=== PATIENT | male | born 1965 | race Caucasian/White ===

== ENCOUNTER 2019-11-12 11:58 | Inpatient (IN) | payer SELFPAY ==
[~2019-11-12] VITALS: Ht 175.3 cm; Wt 103.7 kg
--- NOTE | 2019-11-12 12:19 | NUR ---
AMBULATORY TO & FROM [facility] W/OUT INCIDENT: GAIT STEADY. VOIDED SPECIMEN PROVIDED - CLEAR KO. REPORTS DARK URINE X 2 DAYS, FREQUENCY, VOIDING SMALL AMOUNTS, INTERMITTENT BURNING. REPORTS ENLARGED RIGHT TESTICLE: "THE RIGHT SIDE IS TOO BIG".
--- NOTE | 2019-11-12 12:48 | NUR ---
BILL STARK BS FOR EXAM
[2019-11-12 13:21] LABS: MEAN CORPUSCULAR HEMOGLOBIN 29.8 pg (27.5-34.5); MEAN CORPUSCULAR HGB CONC 32.1 g/dL (33.2-36.2); MEAN PLATELET VOLUME 9.4 fL (7.4-10.4); PLATELET COUNT 270 x10^3/uL (130-400); RED BLOOD COUNT 4.95 x10^6/uL (4.38-5.82); RED CELL DISTRIBUTION WIDTH 14.8 % (9.4-14.8)
[2019-11-12 13:25] LABS: MICROSCOPIC INDICATED
--- NOTE | 2019-11-12 13:30 | NUR ---
PT STRAIGHT CATH'D FOR URINE SPECIMEN (PT UNCIRCUMSIZED). PT TOLERATED PROCEDURE WELL. SPECIMEN TAKEN TO LAB.
[2019-11-12 13:33] LABS: ALANINE AMINOTRANSFERASE 31 U/L (12-78); ANION GAP 3 mmol/L (5-15); CALCIUM 8.7 mg/dL (8.5-10.1); CHLORIDE 106 mmol/L (98-107); CREATININE 0.88 mg/dL (0.7-1.3)
[2019-11-12 13:35] LABS: ALKALINE PHOSPHATASE 80 U/L (45-117); BILIRUBIN,TOTAL 0.7 mg/dL (0.2-1.0); TOTAL PROTEIN 7.3 g/dL (6.4-8.2)
[2019-11-12 13:45] LABS: MD YES
[2019-11-12 13:49] LABS: ANISOCYTOSIS 1+; LYMPHS% (MANUAL) 4 % (22-44); MONOS% (MANUAL) 4 % (2-9); SEGS% (MANUAL) 92 % (42-75)
[2019-11-12 13:50] LABS: POLYCHROMASIA 1+
[2019-11-12 13:51] LABS: PMNS WITH VACUOLES 1+
[2019-11-12 13:52] LABS: <PLATELET ESTIMATE> ADEQUATE; LARGE PLATELETS 1+
--- NOTE | 2019-11-12 13:54 | NUR ---
CALLED LAB RE: CATH'D URINE SPECIMEN. TECH HASN'T RECEIVED SPECIMEN. YET. INFORMED HER THAT THE SPECIMEN WAS WALKED THERE AT 1330.
[2019-11-12 14:08] LABS: MICROSCOPIC AUTO
--- NOTE | 2019-11-12 15:05 | NUR ---
SEPSIS WORKSHEET INITIATED.
[2019-11-12] MEDS ORDERED: LEVOFLOXACIN/PMX 750MG/150ML 150 ML ONE (15:29)
--- NOTE | 2019-11-12 15:36 | NUR ---
PT REPORT TO JENI POTTS FOR ROOM 369
[2019-11-12] MEDS: LEVOFLOXACIN/PMX 750MG/150ML 150 ML IV ONE ×2 (15:41→15:49)
--- NOTE | 2019-11-12 15:49 | NUR ---
BLD CX BAND ON WRIST. LEVAQUIN HUNG PER EMAR
[2019-11-12] MEDS ORDERED: MELATONIN 5 MG TABLET PO PRN (16:00)
[2019-11-12] MEDS ORDERED: BISACODYL 10 MG SUPP PR PRN (16:00)
[2019-11-12] MEDS ORDERED: OXYcodone IR 5MG TABLET PO PRN (16:00)
[2019-11-12] MEDS ORDERED: ACETAMINOPHEN 325 MG TABLET PO PRN (16:00)
[2019-11-12] MEDS ORDERED: DOCUSATE 100 MG CAPSULE PO PRN (16:00)
[2019-11-12] MEDS ORDERED: ONDANSETRON ODT 4 MG PO PRN (16:00)
[2019-11-12] MEDS ORDERED: LEVOFLOXACIN/PMX 750MG/150ML 150 ML IV SCH (16:00)
[2019-11-12] MEDS ORDERED: hydrALAzine 20 MG/ML, 1ML IVPush PRN (16:00)
[2019-11-12] MEDS ORDERED: POLYETHYLENE GLYCOL 17 GM PACKET PO PRN (16:00)
[2019-11-12] MEDS: IBUPROFEN 600 MG TABLET PO SCH ×2 (17:02→21:25)
[2019-11-12] MEDS: ENOXAPARIN 40 MG/0.4 ML SQ SCH (17:02)
[2019-11-12] MEDS: SODIUM CHLORIDE 0.9% 1,000 ML IV SCH (17:02)
[2019-11-12 17:12] VITALS: BP 173/87
[2019-11-12 17:36] LABS: MEAN CORPUSCULAR HEMOGLOBIN 30.1 pg (27.5-34.5); MEAN CORPUSCULAR HGB CONC 32.7 g/dL (33.2-36.2); MEAN PLATELET VOLUME 9.6 fL (7.4-10.4); PLATELET COUNT 250 x10^3/uL (130-400); RED BLOOD COUNT 4.92 x10^6/uL (4.38-5.82)
[2019-11-12 17:55] LABS: FREE T4 (FREE THYROXINE) 1.19 ng/dL (0.76-1.46)
[2019-11-12 18:08] LABS: MD YES
[2019-11-12 18:12] LABS: ANISOCYTOSIS 1+; EOS#(MANUAL) 0.25 x10^3/uL (0.0-0.4); EOS% (MANUAL) 1 % (1-7); LYMPHS% (MANUAL) 11 % (22-44); MONOS#(MANUAL) 0.74 x10^3/uL (0.3-2.7); MONOS% (MANUAL) 3 % (2-9); SEG#(MANUAL) 20.83 x10^3/uL (1.8-6.8); SEGS% (MANUAL) 85 % (42-75)
[2019-11-12 18:13] LABS: <PLATELET ESTIMATE> ADEQUATE; LARGE PLATELETS 1+; PMNS WITH VACUOLES 1+
[2019-11-12 18:48] LABS: HCT (SEDRATE) 45.3 % (39.2-51.8)
[2019-11-12 19:24] VITALS: BP 150/78
[2019-11-12] MEDS: FAMOTIDINE 20 MG TABLET PO SCH (21:25)
[2019-11-13 01:17] VITALS: BP 135/77
[2019-11-13] MEDS: SODIUM CHLORIDE 0.9% 1,000 ML IV SCH ×3 (01:59→21:59)
[2019-11-13 05:52] LABS: CHLORIDE 107 mmol/L (98-107)
[2019-11-13 06:01] LABS: ALANINE AMINOTRANSFERASE 31 U/L (12-78); ALBUMIN 2.6 g/dL (3.4-5.0); ALKALINE PHOSPHATASE 76 U/L (45-117); ANION GAP 5 mmol/L (5-15); BILIRUBIN,TOTAL 0.8 mg/dL (0.2-1.0); CALCIUM 8.6 mg/dL (8.5-10.1); CHOL/HDL RATIO 4.2; CHOLESTEROL, TOTAL 137 mg/dL (140-239); CREATININE 0.82 mg/dL (0.7-1.3); HDL CHOL % 24 % (26-37); HDL CHOLESTEROL (DIRECT) 33 mg/dL (40-60); LDL CHOLESTEROL,CALCULATED 83 mg/dL (54-169); LDL/HDL RATIO 2.5 (0.5-3.0); TOTAL PROTEIN 6.9 g/dL (6.4-8.2); TRIGLYCERIDES 107 mg/dL (50-200); VLDL CHOLESTEROL 21 mg/dL (0-25)
[2019-11-13 07:32] VITALS: BP 152/82
[2019-11-13] MEDS: IBUPROFEN 600 MG TABLET PO SCH ×3 (09:20→20:03)
[2019-11-13] MEDS: FAMOTIDINE 20 MG TABLET PO SCH ×2 (09:20→20:03)
[2019-11-13 13:37] VITALS: BP 157/92
[2019-11-13] MEDS: ENOXAPARIN 40 MG/0.4 ML SQ SCH (16:39)
[2019-11-13] MEDS: LEVOFLOXACIN 750 MG TABLET PO SCH (16:39)
[2019-11-13] MEDS ORDERED: OMNIPAQUE 350 MG/ML, 100ML BOTTLE ONE (17:00)
[2019-11-13 19:09] VITALS: BP 163/89
[2019-11-14 00:23] VITALS: BP 157/84
[2019-11-14 06:40] LABS: ANION GAP 5 mmol/L (5-15); CALCIUM 8.6 mg/dL (8.5-10.1); CHLORIDE 109 mmol/L (98-107); CREATININE 0.69 mg/dL (0.7-1.3)
[2019-11-14 06:51] VITALS: BP 166/92
[2019-11-14 07:25] LABS: MEAN CORPUSCULAR HEMOGLOBIN 30.1 pg (27.5-34.5); MEAN CORPUSCULAR HGB CONC 32.4 g/dL (33.2-36.2); MEAN CORPUSCULAR VOLUME 92.8 fL (81-97); MEAN PLATELET VOLUME 9.7 fL (7.4-10.4); PLATELET COUNT 282 x10^3/uL (130-400); RED BLOOD COUNT 4.68 x10^6/uL (4.38-5.82); RED CELL DISTRIBUTION WIDTH 14.9 % (9.4-14.8)
[2019-11-14 07:26] LABS: BASOPHILS # (AUTO) 0.03 x10^3/uL (0-0.1); BASOPHILS % (AUTO) 0 % (0-1); EOSINOPHILS # (AUTO) 0.24 x10^3/uL (0-0.4); EOSINOPHILS % (AUTO) 1 % (1-7); LYMPHOCYTES # (AUTO) 1.05 x10^3/uL (1-3.4); LYMPHOCYTES % (AUTO) 6 % (22-44); MD SCAN; MONOCYTES # (AUTO) 0.96 x10^3/uL (0.2-0.8); MONOCYTES % (AUTO) 6 % (2-9); NEUTROPHILS # (AUTO) 14.57 x10^3/uL (1.8-6.8); NEUTROPHILS % (AUTO) 87 % (42-75)
[2019-11-14] MEDS: FAMOTIDINE 20 MG TABLET PO SCH ×2 (08:07→20:19)
[2019-11-14] MEDS: SODIUM CHLORIDE 0.9% 1,000 ML IV SCH (08:07)
[2019-11-14] MEDS: IBUPROFEN 600 MG TABLET PO SCH ×3 (08:07→20:19)
[2019-11-14 08:10] LABS: HCT (SEDRATE) 43.4 % (39.2-51.8)
[2019-11-14 13:45] VITALS: BP 115/79
[2019-11-14] MEDS: FUROSEMIDE 40 MG/4 ML IV SCH (15:43)
[2019-11-14] MEDS: ENOXAPARIN 40 MG/0.4 ML SQ SCH (15:43)
[2019-11-14] MEDS: POTASSIUM CHLORIDE 20 MEQ TAB.ER.PRT PO SCH (15:44)
[2019-11-14] MEDS: LEVOFLOXACIN 750 MG TABLET PO SCH (15:44)
[2019-11-14 18:51] VITALS: BP 158/89
[2019-11-15 00:07] VITALS: BP 157/97
[2019-11-15 04:56] LABS: ANION GAP 6 mmol/L (5-15); CALCIUM 9.3 mg/dL (8.5-10.1); CHLORIDE 107 mmol/L (98-107); CREATININE 0.82 mg/dL (0.7-1.3)
[2019-11-15 04:59] LABS: MEAN CORPUSCULAR HEMOGLOBIN 30.1 pg (27.5-34.5); MEAN CORPUSCULAR HGB CONC 32.5 g/dL (33.2-36.2); MEAN CORPUSCULAR VOLUME 92.7 fL (81-97); MEAN PLATELET VOLUME 9.2 fL (7.4-10.4); PLATELET COUNT 322 x10^3/uL (130-400); RED BLOOD COUNT 5.02 x10^6/uL (4.38-5.82); RED CELL DISTRIBUTION WIDTH 14.9 % (9.4-14.8)
[2019-11-15 05:41] LABS: BASOPHILS # (AUTO) 0.08 x10^3/uL (0-0.1); BASOPHILS % (AUTO) 1 % (0-1); EOSINOPHILS # (AUTO) 0.36 x10^3/uL (0-0.4); EOSINOPHILS % (AUTO) 3 % (1-7); LYMPHOCYTES # (AUTO) 1.47 x10^3/uL (1-3.4); LYMPHOCYTES % (AUTO) 12 % (22-44); MONOCYTES # (AUTO) 1.07 x10^3/uL (0.2-0.8); MONOCYTES % (AUTO) 9 % (2-9); NEUTROPHILS # (AUTO) 8.93 x10^3/uL (1.8-6.8); NEUTROPHILS % (AUTO) 75 % (42-75)
[2019-11-15 05:42] LABS: MD SCAN
[2019-11-15 06:41] VITALS: BP 149/81
[2019-11-15] MEDS: FUROSEMIDE 40 MG/4 ML IV SCH ×2 (07:50→16:34)
[2019-11-15] MEDS: POTASSIUM CHLORIDE 20 MEQ TAB.ER.PRT PO SCH ×2 (07:50→16:34)
[2019-11-15] MEDS: IBUPROFEN 600 MG TABLET PO SCH ×3 (07:50→21:15)
[2019-11-15] MEDS: FAMOTIDINE 20 MG TABLET PO SCH ×2 (07:50→21:15)
[2019-11-15 14:37] VITALS: BP 156/84
[2019-11-15] MEDS: ENOXAPARIN 40 MG/0.4 ML SQ SCH (16:33)
[2019-11-15] MEDS: LEVOFLOXACIN 750 MG TABLET PO SCH (16:34)
[2019-11-15 20:25] VITALS: BP 154/80
[2019-11-16 00:22] VITALS: BP 156/84
[2019-11-16 06:12] LABS: BASOPHILS % (AUTO) 1 % (0-1); EOSINOPHILS # (AUTO) 0.38 x10^3/uL (0-0.4); EOSINOPHILS % (AUTO) 3 % (1-7); LYMPHOCYTES # (AUTO) 1.36 x10^3/uL (1-3.4); LYMPHOCYTES % (AUTO) 12 % (22-44); MD NO; MEAN CORPUSCULAR HEMOGLOBIN 30.1 pg (27.5-34.5); MEAN CORPUSCULAR HGB CONC 32.8 g/dL (33.2-36.2); MEAN CORPUSCULAR VOLUME 91.9 fL (81-97); MEAN PLATELET VOLUME 9.1 fL (7.4-10.4); MONOCYTES # (AUTO) 1.29 x10^3/uL (0.2-0.8); MONOCYTES % (AUTO) 11 % (2-9); NEUTROPHILS # (AUTO) 8.41 x10^3/uL (1.8-6.8); NEUTROPHILS % (AUTO) 73 % (42-75); PLATELET COUNT 327 x10^3/uL (130-400); RED CELL DISTRIBUTION WIDTH 14.4 % (9.4-14.8)
[2019-11-16 06:21] LABS: CHLORIDE 106 mmol/L (98-107)
[2019-11-16 06:41] LABS: ANION GAP 8 mmol/L (5-15); CALCIUM 8.8 mg/dL (8.5-10.1); CREATININE 0.91 mg/dL (0.7-1.3)
[2019-11-16 07:29] VITALS: BP 149/80
[2019-11-16] MEDS: FAMOTIDINE 20 MG TABLET PO SCH (07:32)
[2019-11-16] MEDS: FUROSEMIDE 40 MG/4 ML IV SCH (07:32)
[2019-11-16] MEDS: POTASSIUM CHLORIDE 20 MEQ TAB.ER.PRT PO SCH (07:32)
[2019-11-16] MEDS: IBUPROFEN 600 MG TABLET PO SCH (07:32)
[2019-11-16] MEDS ORDERED: LEVO750T26 PO (09:57)
== END 2019-11-16 11:35 | disposition home or self-care (01) | DRG 872 ==
LOC: ED 12:39 → EDIP 15:18 → 3N 16:01 → DCLOUNGE 11-16 11:30
PROVIDERS: ADMIT Hospitalist; ATTEND Hospitalist
PROC: 0T9B70Z Drainage of Bladder with Drainage Device, Via Natural or Artificial Opening (ICD-10-PCS; principal; 2019-11-12)
DX: A41.9 Sepsis, unspecified organism (principal); N45.3 Epididymo-orchitis
CPT/HCPCS: 36415; 74177; 76870; 80048; 80053; 80061; 81001; 83036; 83605; 84439; 84443; 85025; 85651; 86140; 87040; 87086; 96374; G0378; J1650; J1940; J1956; Q9967; J7030